=== PATIENT | male | born 1970 | race Caucasian/White ===

== ENCOUNTER 2024-04-21 11:11 | Outpatient (CLI) | payer OTHER, SELFPAY ==
--- NOTE | ~2024-04-21 | US_ITS ---
Renal-Bladder ultrasound Clinical History: Elevated creatinine Technique: Real-time sonographic imaging of the kidneys and urinary bladder was performed. Findings: The right kidney measures 13.9 cm in length and the left kidney measures 9.7 cm. There is m oderate left hydronephrosis. No right hydronephrosis. Renal cortical echogenicity is within normal li mits. No renal mass lesion is identified. The urinary bladder is moderately distended at the time of this exam. No intraluminal echoes are iden tified. No abnormal wall thickening is seen. Prostate gland enlarged. Impression: Moderate left hydronephrosis. Reviewed, dictated and finalized at location M. Impression: Moderate left hydronephrosis.
== END 2024-04-21 11:12 ==
PROVIDERS: PCP Physician Assistant; Visit Provider Physician Assistant
DX: R79.89 Other specified abnormal findings of blood chemistry (principal); N20.0 Calculus of kidney
CPT/HCPCS: 76775